=== PATIENT | female | born 1995 | race Caucasian/White ===

== ENCOUNTER → 2018-02-17 00:35 | Observation (INO) ==
[2018-02-16 23:11] LABS: Bacteria,Urine Moderate per hpf (None-Few); Hyaline Casts,Urine Few per lpf (None-Few); Squamous Epithelial Cell,Urine Many per lpf (None-Few); WBC,Urine 15-30 per hpf (0-3)
[2018-02-16 23:18] LABS: Bilirubin,Urine Negative (Negative); Blood,Urine Negative (Negative); Clarity,Urine Cloudy (Clear); Color,Urine Yellow (Yellow); Glucose,Urine (UA) Normal (Normal); Ketones,Urine Negative (Negative); Leukocyte Esterase,Urine Small (Negative); Nitrite,Urine Negative (Negative); PH,Urine 5.5 pH Units (5.0-8.0); Protein,Urine Trace mg/dL (Neg-Trace); Specific Gravity,Urine 1.022 (1.010-1.025); Urobilinogen,Urine Normal (Normal)
[2018-02-16 23:20] LABS: Amphetamine Screen,Urine Negative ng/mL (Cutoff=1000); Barbiturate Screen,Urine Negative ng/mL (Cutoff=200); Benzodiazepines Screen,Urine Negative ng/mL (Cutoff=200); Cannabinoid Screen,Urine Negative ng/mL (Cutoff = 50); Cocaine Screen,Urine Negative ng/mL (Cutoff= 300); Opiate Screen,Urine Negative ng/mL (Cutoff=300); Phencyclidine Screen,Urine Negative ng/mL (Cutoff=25)
--- NOTE | 2018-02-17 06:53 | OB/GYN Progress Note ---
Date of Encounter: 02/17/18 Time of Encounter: 00:25 - Assessment and Plan (1) 37 weeks gestation of Status: Acute (2) False labor after 37 completed weeks of gestation Status: Acute Pt seen and evaluated by nursing staff. SVE closed. NST reactive. Discharge home with precautions. Subjective - Subjective Interval history: 22 year-old presenting with c/o abdominal pain at 37 weeks gestation. Good FM. No leaking or bleeding. Antepartum ROS: movement normal, contractions, no loss of fluid, no vaginal bleeding Objective - Vital Signs Vital Signs: Intake and Output 02/16/18 02/16/18 02/17/18 15:59 23:59 07:59 Other: Weight 101.106 kg - Exam FHR: category 1 FHR comments: NST reactive Cervical dilation: closed per RN - Labs Labs: Abnormal lab results Urine Clarity Cloudy (Clear) A 02/16/18 22:55 Ur Leukocyte Esterase Small (Negative) H 02/16/18 22:55 Urine Microscopic WBC 15-30 per hpf (0-3) H 02/16/18 22:55 Ur Squamous Epith Cells Many per lpf (None-Few) H 02/16/18 22:55 Urine Bacteria Moderate per hpf (None-Few) H 02/16/18 22:55 Ur Culture Indicated? NO. (NO) A 02/16/18 22:55
== END | disposition home or self-care (01) ==
LOC: 1NENULAB
PROVIDERS: ADMIT Registered Nurse; ATTEND Registered Nurse

== ENCOUNTER → 2018-02-23 01:25 | Observation (INO) ==
--- NOTE | 2018-02-23 01:33 | Discharge Summary ---
Date of Encounter: 02/23/18 Time of Encounter: 01:32 - Discharge Diagnosis (1) 38 weeks gestation of Priority: Primary Status: Acute Comments: Admitted to observation to rule out labor (2) Uterine contractions during Priority: Secondary Status: Acute Comments: Irregular contractions q 2-4 minutes noted on toco No cervical change in 1 hour. Patient is to follow-up as scheduled with Dr. Mills tomorrow (3) NST (non-stress test) reactive Priority: Secondary Status: Acute Comments: 130 bpm, moderate variability, +15x15 accels, no decelerations - Discharge Medications Home Medications: Vits96/Iron Fum/Folic [ Tablet] 1 each PO DAILY 02/16/18 [History] Allergies/Adverse Reactions: Allergy/AdvReac Type Severity Reaction Status Date / Time No Known Allergies Allergy Verified 02/22/18 23:39 Date of admission: 02/22/18 23:34 Discharging clinician: Michelle Killian Anticipated date of discharge: 02/23/18 - Patient Status Disposition: Home, Self-Care Condition: Good Functional capacity at discharge: independent ambulation Overall status at discharge: patient is back to baseline - Discharge Instructions Additional Instructions: LABOR AND DELIVERY DISCHARGE INSTRUCTIONS Signs and Symptoms to be Reported to your Doctor Immediately: * Sudden gush, continuous or intermittent lead of fluid from vagina (note the time of gush and color of fluid) * Onset of bright red vaginal bleeding with or without pain (if you had a vaginal exam during this visit you may notice some dark red spotting. This is normal.) * Contractions that are 5 minutes apart (from the beginning of one contraction to the beginning of the next) and last 45-60 seonds; contractions that you can no longer walk, talk or laugh through. * A change in the baby's activity. This could be an increase or decrease in activity. * Severe headache which does not go away with tylenol. * Sudden swelling in the face, hands, arms and/or legs. * Upper abdominal pain - sometimes associated with heartburn or nausea and is not relieved by Maalox, Mylanta or Tums. * Kick Counts __ One hour after a meal, lay down on one side in a quiet place. Count the number of time the baby moves during an hour. 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 Reports positive movement denies bleeding and vaginal leakage. Reactive heart rate noted, despite contractions every 2-4 minutes no cervical change during stay. Patient scheduled for a routine visit with Dr. Mills tomorrow. She was discharged home in good condition with support persons at side Time Attestation: Total time spent providing and/or coordinating discharge services: Time Spent: Less than 30 minutes Exam - Constitutional General appearance IM: cooperative, A&O X 3, pleasant, no acute distress, answers questions appropriately - Respiratory Respiratory exam: Present: CTAB - Cardiovascular Cardiovascular exam IM: Present: RRR, +S1, +S2 - GI/Abdominal GI/Abdominal exam IM: normal bowel sounds - Rectal Rectal exam: deferred - Extremities Exam Extremities exam IM: Present: full ROM, normal capillary refill, normal inspection - Neurological Exam Neurological exam: alert, normal gait, oriented X3 - VTE Reasons for not Prescribing Prophylaxis: Treatment not Indicated - Low risk for VTE
== END | disposition home or self-care (01) ==
LOC: 1NENULAB
PROVIDERS: ADMIT Registered Nurse; ATTEND Registered Nurse

== ENCOUNTER → 2018-03-06 17:50 | Observation (INO) ==
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
[2018-03-06 15:55] LABS: Amphetamine Screen,Urine Negative ng/mL (Cutoff=1000); Barbiturate Screen,Urine Negative ng/mL (Cutoff=200); Benzodiazepines Screen,Urine Negative ng/mL (Cutoff=200); Cannabinoid Screen,Urine Negative ng/mL (Cutoff = 50); Cocaine Screen,Urine Negative ng/mL (Cutoff= 300); Opiate Screen,Urine Negative ng/mL (Cutoff=300); Phencyclidine Screen,Urine Negative ng/mL (Cutoff=25)
== END | disposition home or self-care (01) ==
LOC: 1NENULAB
PROVIDERS: ADMIT Student in an Organized Health Care Education/Training Program; ATTEND Student in an Organized Health Care Education/Training Program

== ENCOUNTER 2018-03-10 09:45 | Inpatient (IN) ==
[2018-03-10 11:46] LABS: Candida DNA Not Detected (Not Detect); Gardnerella DNA DETECTED (Not Detect); Trichomonas DNA Not Detected (Not Detect)
[2018-03-10] MEDS ORDERED: Metoclopramide 10 MG/2 ML VIAL IVP PRN (12:55)
[2018-03-10] MEDS ORDERED: Naloxone 0.4 MG/ML INJ IVP PRN (12:55)
[2018-03-10] MEDS ORDERED: *HR* Nalbuphine 10 MG/ML AMPUL IVP PRN (12:55)
[2018-03-10] MEDS ORDERED: Famotidine 20 MG/2 ML VIAL IVP PRN (12:55)
[2018-03-10] MEDS ORDERED: Oxytocin 20 units/ LR 1000 mL 20 UNIT/1,000 ML BAG IVC SCH (13:00)
[2018-03-10] MEDS ORDERED: Penicillin G Potassium 5,000,000 UNIT in 0.9 % Sodium Chloride Mini Bag 100 ML IVPB ONE (13:00)
[2018-03-10] MEDS ORDERED: Ringers Solution, Lactated 1,000 ML IVC SCH (13:00)
--- NOTE | 2018-03-10 13:30 | OB/GYN History & Physical ---
Date of Encounter: 03/10/18 Time of Encounter: 13:28 Assessment and Plan (1) 40 weeks gestation of Current visit: Yes Status: Acute Admit for labor induction at 40 weeks and 4 days gestation Discussed options for labor induction of Zimmerman bulb and patient is agreeable. She was scheduled for induction on but is agreeable to being induced today. (2) Group beta Strep positive Current visit: Yes Status: Acute Penicillin prophylaxis every 4 hours until delivery (3) NST (non-stress test) reactive Current visit: No Status: Acute FHR 135 bpm, moderate variability, +15x15 accels, no decels History of Present Illness Chief complaint: Possible SROM, Vaginal bleeding HPI: Ms. Lyn is a 22 year old female at 40 weeks and 4 days gestation who arrived today with complaints of possible fluid leakage and vaginal bleeding. S he endorses positive movement, denies regular contractions. She states she is scheduled for induction on of this week. We discussed possibility of inducing her today and she is agreeable with the plan to start induction today. On speculum exam moderate amount of bloody show noted in vagina. Nitrazine was negative, fern negative. GC chlamydia and vaginosis panel collected at patient request due to new sexual partner recently. Blood type A positive GBS positive Rubella immune Varicella immune HBsAg negative HIV-negative GC and Chlamydia both negative today Positive bacterial vaginosis on panel collected today Past Med Surg Social Fam HX - Past Medical History Source: patient Medical history: non-contributory Psychiatric history: anxiety, depression - Past Surgical History Surgical History: other Additional surgical history: BMT at age 2. [place] teeth removed - Social History Smoking Status: Former smoker Smokeless Tobacco Status: No Alcohol use: none Drug use: none Current living situation: Home - Independent Activity Level: Independent ambulation Recent Out of Country Travel Within the Last 8 Weeks: No Exposure or Possible Exposure to Illness During Travel: No - Family History Maternal Grandfather Hx Family Endocrine Disorder: Yes (DM) Obstetrical History - Pregnancies : 1 Para: 0 Term: 0 : 0 Ab's: 0 Livin Medications and Allergies Vits96/Iron Fum/Folic [ Tablet] 1 each PO DAILY 02/16/18 [History] Ferrous Sulfate [Iron] 325 mg PO DAILY 03/06/18 [History] Allergy/AdvReac Type Severity Reaction Status Date / Time No Known Allergies Allergy Verified 03/06/18 13:25 Exam - Constitutional Constitutional: well developed, well nourished, no acute distress - Neck Neck exam: full ROM, normal inspection - Lungs Respiratory exam: CTAB - Cardiovascular Cardiovascular exam: RRR, +S1, +S2 - Breasts Breast: bilateral: normal - Abdomen Abdomen: Present: bowel sounds normal, gravid, non tender - Extremities Extremities exam: full ROM, normal capillary refill, normal inspection, warm Deep Tendon Reflex Grade: 2+ Normal - Vulva Vulva: bilateral: normal - Vagina Vagina: Present: normal moisture, discharge (bloody show) - Cervix Dilation: 2 Effacement: 0 (thick) Station: -3 - Uterus Uterus exam: Present: normal size - Anus/Rectum Anus/Rectum: Present: normal perianal skin Results Abnormal lab results Gardnerella DNA Probe DETECTED (Not Detect) A 03/10/18 10:30 All other labs normal. - VTE Reasons for not Prescribing Prophylaxis: Treatment not Indicated - Low risk for VTE
--- NOTE | 2018-03-10 13:50 | OB Labor Progress Note ---
Date of Encounter: 03/10/18 Time of Encounter: 13:48 Labor Progress Note - Subjective Subjective: Patient coping well with contractions. Breathing with them. - Vital Signs Vital Signs: WNL, Afebrile - Cervix Cervix: 2/Thick/-3 - Heart Tones Heart Tones: FHR 145 bpm, moderate variability, no accels, no decels. - Dousman Dousman: Irregular contractions - Interventions Interventions: SVE Cervical carrion placed without difficulty. Filled with 60 mL sterile water. Moderate amount of bloody show. - Plan Physician notified: Yes Physician notified details: Dr. Dash aware of patient status. Plan: Gently tug to carrion every hour Begin GBS prophylaxis Expectant management Anticipate
[2018-03-10 14:49] LABS: Basophils % 0.3 %; Eosinophils # 0.1 K/mcL (0.0-0.6); Hematocrit 35.4 % (35.3-44.9); Hemoglobin 11.5 g/dL (11.5-15.4); Immature Granulocytes % 0.3 % (0-4); Lymphocytes # 1.5 K/mcL (0.6-4.6); Lymphocytes % 12.6 %; Mean Corpuscular HGB Conc 32.5 g/dL (31.6-35.5); Mean Corpuscular Hemoglobin 26.8 pg (28.0-33.3); Mean Corpuscular Volume 82.5 fL (83.0-100.0); Mean Platelet Volume 11.6 fL (9.4-12.4); Monocytes % 8.4 %; Neutrophils # 9.1 K/mcL (1.6-8.9); Platelet Count 256 K/mcL (140-400); Red Blood Count 4.29 M/mcL (3.82-4.97); Red Cell Distribution Width 14.5 % (11.5-14.5); Segmented Neutrophils % 77.4 %
[2018-03-10] MEDS: Ondansetron 4 MG/2 ML VIAL IVP PRN (18:28)
[2018-03-10] MEDS: Penicillin G Potassium 2,500,000 UNIT in 0.9 % Sodium Chloride 100 ML IVPB SCH ×2 (18:30→23:22)
[2018-03-10] MEDS ORDERED: Epidural Premix (fent/bupiv) 110 ML EP SCH (19:00)
[2018-03-10] MEDS ORDERED: Lidocaine -MPF 1% 5 ML AMPUL ONE (19:02)
--- NOTE | 2018-03-10 19:42 | Anesthesia Evaluation PreOp ---
Date of Encounter: 03/10/18 Time of Encounter: 19:05 - Past History Planned Operation: ceasar Cardiac History: Denies any Significant Hx Pulmonary History: Denies Any Significant HX TRAVELING FREIGHT AGENT History: Denies Any Significant HX Anesthesia History: No Prior Anesthetic Complications : Yes Test: Positive Alcohol Use: none Drug use: none Medications and Allergies Vits96/Iron Fum/Folic [ Tablet] 1 each PO DAILY 02/16/18 [History] Ferrous Sulfate [Iron] 325 mg PO DAILY 03/06/18 [History] Allergy/AdvReac Type Severity Reaction Status Date / Time No Known Allergies Allergy Verified 03/06/18 13:25 - Meds/Allergy Pre-op Review Medications Reviewed: Yes Allergies Reviewed: Yes Beta Blockers on Current Med List: No Anesthesia Results - Labs 03/10/18 11:05 Anesthesia Exam - HEENT Pupil (Motor): Pupils equal Mallampati: II Teeth: Normal Oral Opening: Greater than 3 - TRAVELING FREIGHT AGENT LOC: Oriented TRAVELING FREIGHT AGENT Motor: Normal RUE, Normal LUE, Normal RLE, Normal LLE, Normal Face TRAVELING FREIGHT AGENT Sensory: Normal: RUE, LUE, RLE, LLE, Face - Cardiac Rhythm: Regular Murmur: None JVD: No Carotid Bruit: No - Pulmonary Breath Sounds: bilateral Clear Respiratory Effort: Symmetrical Anesthesia Assess/Plan ASA Score: 2 Level of consciousness: Cooperative, Anxious Anesthetic Plan: Epidural (states has chronic back pain. risk benefits accepted agrees to CEASAR)
--- NOTE | 2018-03-10 19:44 | Anesthesia Procedures ---
Date of Encounter: 03/10/18 Time of Encounter: 19:05 Procedures: Anesthesia - Epidural/Spinal Patient ID/Chart reviewed: Yes Patient examined: Yes OB Eval: Gestational age: 40.3 OB Eval: : 1 OB Eval: Hx Para: 0 OB Eval: Dilated at (cm): 3 Site Prep: Aseptic Technique, Sterile prep and drape, Povidone-Iodine 1% Patient position: upright Amount of Local Anesthetic used: 3 Touhy Needle Gauge: 18 Touhy Needle Depth (cm): 7 Catheter Depth at Skin (cm): 12 Test Dose (1.5% Lido + Epi): Volume given (mls): 3 Test Dose Result: Negative Loading Dose: 0.25% Marcaine (mls): 10 Loading Dose Administered: Thru Catheter Infusion Rate (mls/hr): 15 Interspace Used: L4-L5 Loss of Resistance (TORREY): Yes Blood: No CSF: No Paresthesia: No Vitals + FHT's: FHT VS stable throughout
--- NOTE | 2018-03-10 20:45 | OB Labor Progress Note ---
Date of Encounter: 03/10/18 Time of Encounter: 20:43 Labor Progress Note - Subjective Subjective: Patient completely comfortable with epidural in place - Vital Signs Vital Signs: WNL, Afebrile - Cervix Cervix: 5-6/100/-1 - Heart Tones Heart Tones: 150 bpm, moderate variability, no accels, occassional late decelerations. - Delisle Delisle: q2-4 minutes - Interventions Interventions: SVE AROM for moderate amount of moderate meconium fluid. - Plan Physician notified: Yes Physician notified details: Dr. Dash aware of meconium fluid and category II tracing. Plan: Continue expectant management Consider Pitocin augmentation if needed.
[2018-03-10] MEDS ORDERED: Acetaminophen 325 MG TABLET PO PRN (23:20)
[2018-03-11] MEDS: Ondansetron 4 MG/2 ML VIAL IVP PRN (00:08)
--- NOTE | 2018-03-11 00:20 | OB Labor Progress Note ---
Date of Encounter: 03/10/18 Time of Encounter: 23:48 Labor Progress Note - Subjective Subjective: Patient resting comfortably with epidural in place - Vital Signs Vital Signs: WNL, Afebrile - Cervix Cervix: 6/100/-1 - Heart Tones Heart Tones: FHR 135 bpm, moderate variability, +15x15 accels, variable decels. - Keeler Keeler: Irregular - Interventions Interventions: SVE IUPC placed for accurate contraction monitoring - Plan Plan: Continue labor management Initiate Pitocin augmentation
[2018-03-11 00:27] LABS: Amphetamine Screen,Urine Negative ng/mL (Cutoff=1000); Barbiturate Screen,Urine Negative ng/mL (Cutoff=200); Benzodiazepines Screen,Urine Negative ng/mL (Cutoff=200); Cannabinoid Screen,Urine Negative ng/mL (Cutoff = 50); Cocaine Screen,Urine Negative ng/mL (Cutoff= 300); Opiate Screen,Urine Negative ng/mL (Cutoff=300); Phencyclidine Screen,Urine Negative ng/mL (Cutoff=25)
--- NOTE | 2018-03-11 01:12 | Anesthesia Progress Note ---
Addendum entered and electronically signed by Catherine Nair CRNA 03/11/18 05:46: Delivery Date: 03/11/18 Delivery Time: 04:03 Original Note: Date of Encounter: 03/11/18 Time of Encounter: 01:00 Anesthesia Note - Note Note: 03/11/18 01:06 called to bedside, complains of pain 7. states legs are numb. epidural infusion continues at 15ml/hour. complains of shaking and wants that to stop, explained this is a physiological change reaction from labor. states all of pain is in vagina, internal monitor intact. 125/67 78 16. FHT stable 152. explained option of replacing epidural, however not advised to do so because she has a good working epidural that was placed with ease. epidural catheter bolus given 2% Lidocaine with epi 3ml, sitting in bed applying chap stick at peak of contraction with no response to discomfort during contraction
[2018-03-11] MEDS ORDERED: *HR* HYDROmorphone 2 MG/ML SYRINGE IVP ONE (04:47)
[2018-03-11] MEDS: Penicillin G Potassium 2,500,000 UNIT in 0.9 % Sodium Chloride 100 ML IVPB SCH (04:56)
--- NOTE | 2018-03-11 05:28 | OB/GYN Procedure Note ---
Delivery - Delivery Date: 03/11/18 Provider: Michelle Killian Intrapartum events: meconium Delivery induction: oxytocin, carrion Delivery augmentation: rupture of membranes Delivery monitor: external FHT, internal uterine Anesthesia: local, epidural Quantitated Blood Loss: 250 - (s) A Infant Delivery Date: 03/11/18 Delivery Time: 04:03 Presentation: vertex Position: EMERITA Route of delivery: Gender: Male Viability: Viable Pounds: 8 Ounces: 13 Weight Gram: 4000 kg at 1 minute: 2 at 5 mins: 9 Shoulder Dystocia: not encountered Specimens collected: cord blood, venous cord gases, arterial cord gases Placenta: spontaneous Cord: 3 umbilical vessels - Repair Episiotomy: none Laceration Description: Perineal - 1st Degree, Labial (Bilateral) - Complications Delivery complications: meconium Delivery comments: Called to room for delivery. Under maternal effort, spontaneous delivery of viable male infant over first-degree perineal laceration and bilateral labial lacerations. placed on maternal abdomen for drying and stimulation. Cord clamped and cut by father of baby. Infant promptly taken to warmer by nursery staff for resuscitative measures. Apgars 2 and 9. Cord blood and cord segment collected, cord gases collected as well. Spontaneous delivery of intact placenta, EBL 250 mL's. No nuchal cord or shoulder dystocia encountered. Moderate meconium fluid, placenta and cord stained. Upon inspection of vagina and labia, wide labial lacerations noted bilaterally. Dr. Dash called to room for assistance with repair. Patient unable to tolerate suturing with epidural in place and local anesthesia with Lidocaine so IV Dilaudid was ordered. With this, Dr. Dash was able to complete the repair with minimal patient discomfort. Mo ther stable for 2 hour recovery. Infant taken to nursery for observation. - Disposition Mom disposition: stable in LDR disposition: taken to nursery - Comments Comments: I was called into the room for a vaginal repair. The patient had bilateral vaginal wall lacerations with a 1st degree laceration which I repaired in usual fashion with 3-0 vicryl. EBL 150. Hemostasis assured after delivery.
[2018-03-11] MEDS ORDERED: Ibuprofen 600 MG TABLET PO PRN ×2 (05:44→07:59)
[2018-03-11] MEDS ORDERED: Acetaminophen 325 MG TABLET PO PRN (07:59)
[2018-03-11] MEDS ORDERED: Oxytocin 20 units/ LR 1000 mL 20 UNIT/1,000 ML BAG IVC SCH (07:59)
[2018-03-11] MEDS ORDERED: Benzocaine/Menthol 56 GM AEROSOL SPRAY TP PRN (07:59)
[2018-03-11] MEDS ORDERED: Lanolin 7 G OINT...G. TP PRN (07:59)
[2018-03-11] MEDS ORDERED: Prenatal Vit/FA 1 EACH TABLET PO SCH (09:00)
[2018-03-11] MEDS ORDERED: metroNIDAZOLE 500 MG TABLET PO SCH (09:00)
[2018-03-11] MEDS: *HR* HYDROcodone/Acet 5/325 mg TABLET PO PRN ×2 (15:13→23:10)
[2018-03-11] MEDS: metroNIDAZOLE 500 MG TABLET PO SCH (20:40)
[2018-03-12 06:43] LABS: Basophils % 0.3 %; Eosinophils # 0.1 K/mcL (0.0-0.6); Eosinophils % 0.6 %; Hematocrit 29.1 % (35.3-44.9); Hemoglobin 9.2 g/dL (11.5-15.4); Immature Granulocytes % 0.7 % (0-4); Lymphocytes # 2.4 K/mcL (0.6-4.6); Lymphocytes % 23.7 %; Mean Corpuscular HGB Conc 31.6 g/dL (31.6-35.5); Mean Corpuscular Hemoglobin 26.6 pg (28.0-33.3); Mean Corpuscular Volume 84.1 fL (83.0-100.0); Mean Platelet Volume 10.8 fL (9.4-12.4); Monocytes # 0.9 K/mcL (0.0-1.3); Monocytes % 8.7 %; Neutrophils # 6.7 K/mcL (1.6-8.9); Platelet Count 204 K/mcL (140-400); Red Blood Count 3.46 M/mcL (3.82-4.97)
[2018-03-12 08:28] VITALS: BP 111/71
[2018-03-12] MEDS: metroNIDAZOLE 500 MG TABLET PO SCH (09:56)
--- NOTE | 2018-03-12 10:08 | Discharge Summary ---
Date of Encounter: 03/12/18 Time of Encounter: 10:04 - Discharge Diagnosis (1) Status post vaginal delivery Priority: Secondary Status: Acute Comments: Status post normal vaginal delivery day 1 Meeting day 1 milestones Ambulating without dizziness Normal appetite Voiding well and passing flatus Lochia light Discussed safe spacing and considering transdermal control Mood is appropriate Healthy male BW 8lb 13oz with 2/9 doing well support as needed Well to discharge to home Follow up in 4 weeks (2) 40 weeks gestation of Priority: Primary Status: Acute Comments: Now Delivered at 40w4d (3) anemia Priority: Secondary Status: Acute Comments: Hgb 9.2, Hct 29 Continue ferrous sulfate (4) Bacterial vaginosis Priority: Secondary Status: Acute Comments: Vaginosis panel positive for Gardnerella Was started on flagyl 500 mg BID for 7 days - Discharge Medications Prescriptions: RX: Ibuprofen [Motrin] 600 mg PO Q6HR PRN #30 tablet PRN Reason: Cramping RX: Docusate [Colace] 100 mg PO BID #30 capsule RX: Ferrous Sulfate 325 mg PO DAILY #90 tablet RX: metroNIDAZOLE [Flagyl] 500 mg PO BID 6 Days #12 tablet Home Medications: RX: Vits96/Iron Fum/Folic [ Tablet] 1 each PO DAILY 02/16/18 [History] RX: Ferrous Sulfate [Iron] 325 mg PO DAILY 03/06/18 [History] RX: Acetaminophen [Tylenol] 650 mg PO Q6HR PRN tablet 03/12/18 [Rx] RX: Benzocaine/Menthol [place] [Dermoplast [place]] 1 appl TP QID PRN aerosol 03/12/18 [Rx] RX: Docusate [Colace] 100 mg PO BID #30 capsule 03/12/18 [Rx] RX: Ferrous Sulfate 325 mg PO DAILY #90 tablet 03/12/18 [Rx] RX: Ibuprofen [Motrin] 600 mg PO Q6HR PRN #30 tablet 03/12/18 [Rx] RX: Lanolin [Lansinoh] 1 appl TP TID PRN oint...g. 03/12/18 [Rx] RX: metroNIDAZOLE [Flagyl] 500 mg PO BID 6 Days #12 tablet 03/12/18 [Rx] Allergies/Adverse Reactions: Allergy/AdvReac Type Severity Reaction Status Date / Time No Known Allergies Allergy Verified 03/06/18 13:25 Data Procedures and tests throughout hospitalization: Laboratory Tests 03/10/18 03/10/18 03/10/18 10:30 10:30 11:05 WBC 11.7 H RBC 4.29 Hgb 11.5 Hct 35.4 MCV 82.5 L MCH 26.8 L MCHC 32.5 RDW 14.5 Plt Count 256 MPV 11.6 Immature Gran % 0.3 Seg Neutrophils % 77.4 Lymphocytes % 12.6 Monocytes % 8.4 Eosinophils % 1.0 Basophils % 0.3 Neutrophils # 9.1 H Lymphocytes # 1.5 Monocytes # 1.0 Eosinophils # 0.1 Basophils # 0.0 Urine Opiates Screen Ur Barbiturates Screen Ur Phencyclidine Scrn Ur Amphetamines Screen U Benzodiazepines Scrn Urine Cocaine Screen U Marijuana (THC) Screen Ur Drug Screen Interp Mallorie species DNA Not Detected Chlam trachomat DNA PCR NOT DETECTED Gardnerella DNA Probe DETECTED A N.gonorrhoeae DNA (PCR) NOT DETECTED Trichomonas DNA Probe Not Detected 03/10/18 03/12/18 23:55 05:49 WBC 10.1 RBC 3.46 L Hgb 9.2 L D Hct 29.1 L MCV 84.1 MCH 26.6 L MCHC 31.6 RDW 15.0 H Plt Count 204 MPV 10.8 Immature Gran % 0.7 Seg Neutrophils % 66.0 Lymphocytes % 23.7 Monocytes % 8.7 Eosinophils % 0.6 Basophils % 0.3 Neutrophils # 6.7 Lymphocytes # 2.4 Monocytes # 0.9 Eosinophils # 0.1 Basophils # 0.0 Urine Opiates Screen Negative Ur Barbiturates Screen Negative Ur Phencyclidine Scrn Negative Ur Amphetamines Screen Negative U Benzodiazepines Scrn Negative Urine Cocaine Screen Negative U Marijuana (THC) Screen Negative Ur Drug Screen Interp See Below Mallorie species DNA Chlam trachomat DNA PCR Gardnerella DNA Probe N.gonorrhoeae DNA (PCR) Trichomonas DNA Probe Labs on day of discharge: Labs from last 24 hours 03/12/18 05:49 WBC 10.1 RBC 3.46 L Hgb 9.2 L D Hct 29.1 L MCV 84.1 MCH 26.6 L MCHC 31.6 RDW 15.0 H Plt Count 204 MPV 10.8 Immature Gran % 0.7 Seg Neutrophils % 66.0 Lymphocytes % 23.7 Monocytes % 8.7 Eosinophils % 0.6 Basophils % 0.3 Neutrophils # 6.7 Lymphocytes # 2.4 Monocytes # 0.9 Eosinophils # 0.1 Basophils # 0.0 Date of admission: 03/10/18 09:45 Primary care physician: Luisana Juarez CNP Consults: 03/11/18 07:59 Consult to News Library Director [CONS] Routine Comment: Vaginal delivery, consult needed Discharging clinician: Jill Tse Anticipated date of discharge: 03/12/18 - Patient Status Disposition: Home, Self-Care Condition: Good Functional capacity at discharge: independent ambulation Overall status at discharge: patient is back to baseline - Discharge Instructions Follow Up With: Luisana Juarez CNP [Primary Care Provider] - - Diet and Activity Activity: resume usual activities as tolerated Diet: advance to your usual diet Hospital Course Reason for admission: rupture of membranes Delivery: Episiotomy: none Laceration: 1st degree (1st degree labial and perineal lacerations, repaired) Other procedures: none complications: perineal laceration Discharge diagnosis: IUP at term delivered [place] baby: male Hospital course: Called to room for delivery. Under maternal effort, spontaneous delivery of viable male over first-degree perineal laceration and bilateral labial lacerations. Infant placed on maternal abdomen for drying and stimulation. Cord clamped and cut by father of baby. promptly taken to warmer by nursery staff for resuscitative measures. Apgars 2 and 9. Cord blood and cord segment collected, cord gases collected as well. Spontaneous delivery of intact placenta, EBL 250 mL's. No nuchal cord or shoulder dystocia encountered. Moderate meconium fluid, placenta and cord stained. Upon inspection of vagina and labia, wide labial lacerations noted bilaterally. Dr. Dash called to room for assistance with repair. Patient unable to tolerate suturing with epidural in place and local anesthesia with Lidocaine so IV Dilaudid was ordered. With this, Dr. Dash was able to complete the repair with minimal patient discomfort. Mother stable for 2 hour recovery. taken to nursery for observation. Time Attestation: Total time spent providing and/or coordinating discharge services: Time Spent: Greater than 30 minutes Exam - Constitutional Vitals: Temp Pulse Resp BP Pulse Ox 97.9 F 82 16 111/71 98 03/12/18 07:35 03/12/18 07:35 03/12/18 07:35 03/12/18 07:35 03/12/18 07:35 General appearance IM: A&O X 3, pleasant, no acute distress, answers questions appropriately - Respiratory Respiratory exam: Present: CTAB. Absent: rales, rhonchi, wheezes - Cardiovascular Cardiovascular exam IM: Present: RRR, +S1, +S2 - GI/Abdominal GI/Abdominal exam IM: normal bowel sounds, soft - Uterine Tone: Firm Uterus Position: At Umbilicus - Extremities Exam Extremities exam IM: Present: normal inspection, pedal edema, radial pulses palpable and symmetrical. Absent: calf tenderness - Neurological Exam Neurological exam: CN II-XII intact, oriented X3, no focal deficits - Psychiatric Additional comments: Mood is appropriate - Attending Attestation I have seen and examined this patient and agree with assessment. Sharmaine Celaya CNM
== END 2018-03-12 12:55 | disposition home or self-care (01) | DRG 805 ==
LOC: 1NENULAB → OBSVTOIN 09:45 → 1NENUOBS 03-11 07:55
PROVIDERS: ADMIT Registered Nurse; ATTEND Registered Nurse

== ENCOUNTER 2019-02-06 02:47 | Observation (INO) ==
[2019-02-06] MEDS ORDERED: Ondansetron 4 MG/2 ML VIAL IVP ONE (02:51)
[2019-02-06] MEDS ORDERED: Pantoprazole 40 MG VIAL IVP ONE (02:51)
[2019-02-06] MEDS ORDERED: 0.9 % Sodium Chloride 1,000 ML IVC ONE ×2 (02:51→04:33)
[2019-02-06 03:55] LABS: Basophils # 0.1 K/mcL (0.0-0.2); Basophils % 0.5 %; Eosinophils # 0.1 K/mcL (0.0-0.6); Eosinophils % 0.7 %; Hematocrit 43.2 % (35.3-44.9); Hemoglobin 13.7 g/dL (11.5-15.4); Immature Granulocytes % 0.3 % (0-4); Lymphocytes # 2.3 K/mcL (0.6-4.6); Lymphocytes % 16.7 %; Mean Corpuscular HGB Conc 31.7 g/dL (31.6-35.5); Mean Corpuscular Hemoglobin 26.8 pg (28.0-33.3); Mean Corpuscular Volume 84.4 fL (83.0-100.0); Mean Platelet Volume 9.9 fL (9.4-12.4); Monocytes # 0.7 K/mcL (0.0-1.3); Monocytes % 4.7 %; Neutrophils # 10.6 K/mcL (1.6-8.9); Platelet Count 294 K/mcL (140-400); Red Blood Count 5.12 M/mcL (3.82-4.97); Red Cell Distribution Width 13.8 % (11.5-14.5); Segmented Neutrophils % 77.1 %; White Blood Count 13.8 K/mcL (4.3-11.1)
[2019-02-06 04:14] LABS: BUN/Creatinine Ratio 17 (6-26); Blood Urea Nitrogen 11 mg/dL (6-20); Calcium 8.9 mg/dL (8.6-10.3); Carbon Dioxide 23 mEq/L (23-29); Chloride 111 mEq/L (98-107); Ethanol 104 mg/dL (Less than 10); Glucose 113 mg/dL (70-105); Osmolality,Calculated 294 (280-300); Potassium 3.9 mEq/L (3.5-5.1); Sodium 142 mEq/L (136-145); eGFR For African Americans > 60 (> 60); eGFR For Non-African Americans > 60 (> 60)
[2019-02-06 04:22] LABS: Troponin I < 0.03 ng/mL (< 0.04)
[2019-02-06 05:40] LABS: Amphetamine Screen,Urine Negative ng/mL (Cutoff=1000); Barbiturate Screen,Urine Negative ng/mL (Cutoff=200); Benzodiazepines Screen,Urine Negative ng/mL (Cutoff=200); Cannabinoid Screen,Urine Negative ng/mL (Cutoff = 50); Cocaine Screen,Urine Negative ng/mL (Cutoff= 300); Opiate Screen,Urine Negative ng/mL (Cutoff=300); Phencyclidine Screen,Urine Negative ng/mL (Cutoff=25)
[2019-02-06 05:56] LABS: Thyroid Stimulating Hormone 2.156 mcIU/mL (0.340-5.600)
[2019-02-06] MEDS: 0.9 % Sodium Chloride 1,000 ML IVC SCH ×3 (06:20→22:00)
[2019-02-06] MEDS ORDERED: Naloxone 0.4 MG/ML INJ IVP PRN (07:21)
[2019-02-06] MEDS ORDERED: Ondansetron 4 MG/2 ML VIAL IVP PRN (07:21)
[2019-02-06] MEDS ORDERED: Acetaminophen 325 MG TABLET PO PRN (07:21)
[2019-02-06 09:05] LABS: Bilirubin,Urine Negative (Negative); Blood,Urine Negative (Negative); Clarity,Urine Clear (Clear); Color,Urine Yellow (Yellow); Glucose,Urine (UA) Normal (Normal); Ketones,Urine Negative (Negative); Leukocyte Esterase,Urine Trace (Negative); Nitrite,Urine Negative (Negative); Protein,Urine Negative (Neg-Trace); Specific Gravity,Urine 1.013 (1.010-1.025); Urobilinogen,Urine Normal (Normal)
[2019-02-06 09:11] LABS: Bacteria,Urine None Seen per hpf (None-Few); Hyaline Casts,Urine None Seen per lpf (None-Few); RBC,Urine 0-3 per hpf (0-3); Squamous Epithelial Cell,Urine Many per lpf (None-Few)
[2019-02-06 12:26] LABS: Hematocrit 40.7 % (35.3-44.9); Hemoglobin 13.3 g/dL (11.5-15.4)
[2019-02-06] MEDS: Thiamine (B-1) 100 MG, Folic Acid 1 MG, MVI, adult with vitamin K 10 ML in 0.9 % Sodi... IVPB SCH (13:37)
[2019-02-06] MEDS: Pantoprazole 40 MG VIAL IVP SCH (17:05)
[2019-02-06 19:55] LABS: Hematocrit 38.1 % (35.3-44.9); Hemoglobin 12.6 g/dL (11.5-15.4)
[2019-02-07] MEDS: 0.9 % Sodium Chloride 1,000 ML IVC SCH ×3 (04:53→22:31)
[2019-02-07] MEDS: Pantoprazole 40 MG VIAL IVP SCH ×2 (06:01→17:25)
[2019-02-07 09:02] LABS: Basophils # 0.1 K/mcL (0.0-0.2); Basophils % 0.6 %; Eosinophils # 0.2 K/mcL (0.0-0.6); Eosinophils % 2.3 %; Hematocrit 41.7 % (35.3-44.9); Hemoglobin 13.5 g/dL (11.5-15.4); Immature Granulocytes % 0.4 % (0-4); Lymphocytes # 3.2 K/mcL (0.6-4.6); Lymphocytes % 40.6 %; Mean Corpuscular HGB Conc 32.4 g/dL (31.6-35.5); Mean Corpuscular Hemoglobin 26.7 pg (28.0-33.3); Mean Corpuscular Volume 82.4 fL (83.0-100.0); Mean Platelet Volume 9.9 fL (9.4-12.4); Monocytes # 0.7 K/mcL (0.0-1.3); Monocytes % 8.8 %; Neutrophils # 3.8 K/mcL (1.6-8.9); Platelet Count 257 K/mcL (140-400); Red Blood Count 5.06 M/mcL (3.82-4.97); Red Cell Distribution Width 13.9 % (11.5-14.5); Segmented Neutrophils % 47.3 %
[2019-02-07 09:16] LABS: BUN/Creatinine Ratio 10 (6-26); Blood Urea Nitrogen 6 mg/dL (6-20); Calcium 8.7 mg/dL (8.6-10.3); Carbon Dioxide 26 mEq/L (23-29); Chloride 107 mEq/L (98-107); Glucose 80 mg/dL (70-105); Osmolality,Calculated 287 (280-300); Potassium 3.5 mEq/L (3.5-5.1); Sodium 140 mEq/L (136-145); eGFR For African Americans > 60 (> 60); eGFR For Non-African Americans > 60 (> 60)
[2019-02-07] MEDS: Diltiazem CD (24hr) 120 MG CAPSULE PO SCH (09:17)
[2019-02-07] MEDS: Thiamine (B-1) 100 MG, Folic Acid 1 MG, MVI, adult with vitamin K 10 ML in 0.9 % Sodi... IVPB SCH (09:17)
[2019-02-08] MEDS: Pantoprazole 40 MG VIAL IVP SCH (05:23)
[2019-02-08 05:55] LABS: Basophils # 0.1 K/mcL (0.0-0.2); Basophils % 0.6 %; Eosinophils # 0.2 K/mcL (0.0-0.6); Eosinophils % 1.9 %; Hematocrit 39.9 % (35.3-44.9); Hemoglobin 13.3 g/dL (11.5-15.4); Immature Granulocytes % 0.3 % (0-4); Lymphocytes # 3.3 K/mcL (0.6-4.6); Lymphocytes % 30.9 %; Mean Corpuscular HGB Conc 33.3 g/dL (31.6-35.5); Mean Corpuscular Hemoglobin 26.8 pg (28.0-33.3); Mean Corpuscular Volume 80.4 fL (83.0-100.0); Mean Platelet Volume 9.8 fL (9.4-12.4); Monocytes % 9.5 %; Platelet Count 252 K/mcL (140-400); Red Blood Count 4.96 M/mcL (3.82-4.97); Red Cell Distribution Width 13.6 % (11.5-14.5); Segmented Neutrophils % 56.8 %; White Blood Count 10.6 K/mcL (4.3-11.1)
[2019-02-08 06:05] LABS: BUN/Creatinine Ratio 16 (6-26); Blood Urea Nitrogen 9 mg/dL (6-20); Calcium 8.5 mg/dL (8.6-10.3); Carbon Dioxide 22 mEq/L (23-29); Chloride 107 mEq/L (98-107); Glucose 85 mg/dL (70-105); Osmolality,Calculated 286 (280-300); Potassium 3.9 mEq/L (3.5-5.1); Sodium 139 mEq/L (136-145); eGFR For African Americans > 60 (> 60); eGFR For Non-African Americans > 60 (> 60)
[2019-02-08] MEDS: 0.9 % Sodium Chloride 1,000 ML IVC SCH (06:32)
[2019-02-08 07:14] VITALS: BP 105/69
[2019-02-08] MEDS: Diltiazem CD (24hr) 120 MG CAPSULE PO SCH (09:11)
== END 2019-02-08 09:19 | disposition home or self-care (01) ==
LOC: 2ANU 02:47 → EMEROOARM 02:47 → SUATTDRO 06:39 → 2ANU 07:53
PROVIDERS: ADMIT Family Medicine; ATTEND Internal Medicine